=== PATIENT | male | born 1985 | race Caucasian/White ===

== ENCOUNTER 2018-07-13 23:17 | Emergency (ER) | payer SELFPAY ==
[~2018-07-13] VITALS: Ht 182.9 cm; Wt 65.7 kg
[2018-07-13 23:21] VITALS: BP 139/81; PULSE 117; RESP 20; Ht 182.9 cm; Wt 65.7 kg
== END 2018-07-14 01:21 | disposition left against medical advice (07) ==
LOC: FTE 23:17
DX: Z53.21 Procedure and treatment not carried out due to patient leaving prior to being seen by health care provider (principal)